=== PATIENT | female | born 1940 | race Caucasian/White ===

== ENCOUNTER → 2019-11-04 | Outpatient (CLI) | payer MEDICARE ==
--- NOTE | 2019-11-04 13:15 | Diagnostic Imaging Report ---
INDICATION: Right-sided abdominal pain for 5 weeks. COMPARISON: None. TECHNIQUE: Abdomen MR with MRCP including 3-D reconstructions. FINDINGS: The patient is status post cholecystectomy and there is marked dilation of the extrahepatic bile duct. It measures 1.6 cm proximally, 1.3 cm at the midportion, and 1.0 cm distally, tapering at the ampulla. Biliary ductal dilatation, though more than typical, likely is related to increased capacitance of the biliary system after cholecystectomy. On MRCP images 9 there is a 5 mm filling defect in the distal common bile duct, which may represent a biliary stone versus artifact from volume averaging. Liver contour, signal, and size are normal. The main pancreatic duct is prominent and there appears to be a dilation of the main pancreatic duct in the pancreas tail. This area is not well evaluated because of respiratory motion. Stomach, duodenum, and other visualized bowel unremarkable. No pleural effusion or suspicious osseous lesion demonstrated. IMPRESSION: Marked extrahepatic biliary ductal dilation, which may be related to increased capacitance of the biliary system after cholecystectomy. A filling defect in the distal common bile duct is noted, though volume averaging is favored over residual biliary stone. Comparison to prior cross-sectional imaging would be helpful. In the absence of that, ERCP might be considered. Questionable dilation of the main pancreatic duct in the tail the pancreas. Abdomen CT without and with intravenous contrast is recommended. Signed by: Miles Saleh MD on 11/04/2019 1:12 PM
== END ==
LOC: MRI 11:18
PROVIDERS: ATTEND Surgery
DX: R10.9 Unspecified abdominal pain (principal)
CPT/HCPCS: 74181

== ENCOUNTER → 2020-10-27 | Outpatient (CLI) | payer SELFPAY ==
[~2020-10-27] MED LIST: DIATRIZOATE MEGL/DIATRIZOA SOD 30 ML BTL PO ONE; IOPAMIDOL 370 MG/ML 200 ML INFUS..BTL INJ ONE; SODIUM CHLORIDE 0.9% 50ML 50 ML ONE
[2020-10-27 14:06] LABS: BLOOD UREA NITROGEN 12 mg/dL (7-26); BUN/CREATININE RATIO 18 (6-25); CREATININE, SERUM 0.68 mg/dL (0.57-1.11); EST GLOMERULAR FILTRATION RATE > 60 ML/MIN (60-)
== END ==
LOC: CT 13:20
PROVIDERS: ATTEND Surgery
DX: C25.9 Malignant neoplasm of pancreas, unspecified (principal)
CPT/HCPCS: 36415; 74170; 82565; 84520; Q9967